=== PATIENT | female | born 1985 | race Caucasian/White ===

== ENCOUNTER 2019-04-24 07:02 | Inpatient (IN) | payer BC ==
--- NOTE | 2019-04-24 09:24 | PCM.HP ---
H&P History of Present Illness - General Date of Service: 04/24/19 Source of Information: Patient History Limitations: Reports: No Limitations - History of Present Illness Initial Comments - Free Text/Narative: This is a 34-year-old 4 para 3 EDC 04/16/19 is 41-6/7 weeks here for induction. She is group B negative, a positive, antibody negative, rubella positive, RPR nonreactive. She has some contractions yesterday stop. She has no vaginal bleeding or discharge. - Related Data Allergies/Adverse Reactions: Allergies Allergy/AdvReac Type Severity Reaction Status Date / Time No Known Allergies Allergy Verified 07/06/14 08:48 Home Medications: Home Meds Calcium Carbonate/Vitamin D3 [Calcium 500 + Vit D 400] 1 each PO DAILY 07/06/14 [History] Fish Oil/[place]-3 Fatty Acids [Fish Oil 1,000 MG] 1,540 mg PO DAILY 07/06/14 [ History] Vits #93/Iron Fum/FA [ Formula Tablet] 1 tab PO DAILY 07/06/14 [History] Social & Family History - Family History Endocrine/Metabolic: Reports: Diabetes, type II H&P Review of Systems - Review of Systems: Review Of Systems: See Below General: Reports: No Symptoms HEENT: Reports: No Symptoms Pulmonary: Reports: No Symptoms Cardiovascular: Reports: No Symptoms Gastrointestinal: Reports: No Symptoms Genitourinary: Reports: No Symptoms Musculoskeletal: Reports: No Symptoms Skin: Reports: No Symptoms Psychiatric: Reports: No Symptoms Neurological: Reports: No Symptoms Hematologic/Lymphatic: Reports: No Symptoms Immunologic: Reports: No Symptoms Exam - Exam Exam: See Below - Exam General: Alert, Oriented, Cooperative HEENT: Mucosa Moist & [place], Posterior Pharynx Clear, TMs Clear Neck: Supple, Trachea Midline Lungs: Clear to Auscultation, Normal Respiratory Effort Cardiovascular: Regular Rate, Regular Rhythm. No: Systolic Murmur GI/Abdominal Exam: Normal Bowel Sounds, Non-Tender, No Distention, No Abnormal Bruit, No Mass, Other (Gravid) (Female) Exam: Other (Cervix-3-4/90/-1) Back Exam: Normal Inspection, Full Range of Motion Extremities: No Pedal Edema Skin: Warm, Dry, Intact Neurological: Normal Speech, Normal Tone Neuro Extensive - Mental Status: Alert, Oriented x3, Normal Mood/Affect, Normal Cognition Neuro Extensive - Motor, Sensory, Reflexes: Normal Gait Psychiatric: Alert, Normal Affect, Normal Mood - Problem List (1) Failed induction of labor SNOMED Code(s): 34856934 ICD Code: O61.9 - FAILED INDUCTION OF LABOR, UNSPECIFIED Status: Acute Current Visit: Yes Problem List Initiated/Reviewed/Updated: Yes Assessment/Plan Comment:: 1. Induction-AROM clear fluid. Head is well applied with no umbilical cord palpated. 2. Group B negative so no prophylaxis needed. 3. Anticipate vaginal delivery.
[2019-04-24] MEDS ORDERED: Oxytocin 10 Units/1 ML SDV IM ONE (13:20)
[2019-04-24] MEDS ORDERED: Acetaminophen/Codeine 300-30 MG Tab PO PRN (13:32)
--- NOTE | 2019-04-24 13:40 | PCM.DEL ---
L & D Note - General Info Date of Service: 04/24/19 - Delivery Note Labor: Induced by ARM Delivery Outcome: Livebirth Infant Delivery Method: Spontaneous Vaginal Delivery-Single Presentation: Left Occiput Anterior (SHAQUILLE) Nuchal Cord: None Prep: Povidone-Iodine (Betadine Anesthesia Type: None Anesthetic: Lidocaine (Xylocaine) 0.5% Plain Local Anesthetic Volume: 2cc Episiotomy Type: None Laceration: 1st Degree Suture type: Vicryl Suture size: 4-0 Placenta: Intact, Spontaneous Resuscitation Needed: No : Suctioned - General Info Date of Service: 04/24/19 Admission Dx/Problem (Free Text): 34-year-old 4 para 3 41-6/7 weeks comes in for induction. A round clear fluid. Went on to deliver a healthy baby girl in the SHAQUILLE position. No nuchal cord. Baby was suctioned after the baby came out. Baby was placed on the mother's lap and the cord was left unclamped for over a minute then clamped and cord blood was taken. The umbilical cord retraction with fundal massage and the percent to deliver without any incident. Cervix was negative on examination and she had a very superficial first-degree laceration that was sutured with 3 simple sutures and 0.5% lidocaine. Blood loss less than 500 and complications none. - Patient Data Med Orders - Current: Current Medications Acetaminophen/Codeine Phosphate (Tylenol With Codeine No.3 300mg/30mg) 1 tab PO Q4H PRN PRN Reason: Pain (moderate 4-6) Ibuprofen (Motrin) 600 mg PO Q6H PRN PRN Reason: Pain - Problem List & Annotations (1) Vaginal delivery SNOMED Code(s): 257734289 Code(s): O80 - ENCOUNTER FOR FULL-TERM UNCOMPLICATED DELIVERY Status: Acute Current Visit: No - Problem List Review Problem List Initiated/Reviewed/Updated: Yes - My Orders Last 24 Hours: My Active Orders 04/24/19 09:19 Monitoring [RC] CONTINUOUS 04/24/19 13:32 May Shower [RC] ASDIRECTED Up ad Garrick [RC] ASDIRECTED Acetaminophen/Codeine [Tylenol with Codeine No.3 300MG/30MG] 1 tab PO Q4H PRN Ibuprofen [Motrin] 600 mg PO Q6H PRN Assess Lochia [WOMSER] Per Unit Routine Assess Uterine Involution [WOMSER] Per Unit Routine Breast Pump [WOMSER] Per Unit Routine Resuscitation Status Routine 04/24/19 13:33 Patient Status [ADT] Routine Vital Signs [RC] PFP Ice Therapy [OM.PC] Per Unit Routine Perineal Care [OM.PC] Per Unit Routine Peripheral IV Discontinue [OM.PC] Routine Sitz Bath [OM.PC] Per Unit Routine 04/24/19 Dinner Regular Diet [DIET] 04/25/19 05:11 HEMOGLOBIN/HEMATOCRIT,HH [HEME] AM 04/25/19 09:00 Vits #93/Iron Fum/FA [ Formula Tablet] 1 tab PO DAILY - Plan Plan:: 1. Admit for care. 2. Regular diet 3. Up ad garrick. 4. H/H in the a.m. 5. Normal care 6. Continue labs once a day.
--- NOTE | 2019-04-25 06:48 | PCM.PNPP ---
- General Info Date of Service: 04/25/19 Admission Dx/Problem (Free Text): The patient is without concerns. She has had to use no pain medication. Her vaginal bleeding is slowing nicely. Functional Status: Reports: Pain Controlled - Patient Data Vital Signs - Most Recent: Last Vital Signs Temp 98.2 F 04/24/19 20:00 Pulse 95 04/24/19 20:00 Resp 15 04/24/19 20:00 BP 136/84 04/24/19 20:00 Pulse Ox 96 04/24/19 20:00 Weight - Most Recent: 244 lb Med Orders - Current: Current Medications Acetaminophen/Codeine Phosphate (Tylenol With Codeine No.3 300mg/30mg) 1 tab PO Q4H PRN PRN Reason: Pain (moderate 4-6) Ibuprofen (Motrin) 600 mg PO Q6H PRN PRN Reason: Pain Multivit/Folic Acid/Iron (-U) 1 each PO DAILY GREGORY Discontinued Medications Oxytocin (Pitocin) 10 unit IM ONETIME ONE Stop: 04/24/19 13:21 Last Admin: 04/24/19 13:15 Dose: 10 unit - Infant Interaction Support Person: - Recovery Exam Fundal Tone: Firm Fundal Level: 1 Fingerbreadths Above Umbilicus Fundal Placement: Midline Lochia Amount: Small Lochia Color: Rubra/Red Perineum Description: Intact, Minimal Bruising/Swelling Episiotomy/Laceration: Approximated Bladder Status: Nonpalpable Urinary Elimination: Voided - Exam General: Alert, Oriented, Cooperative Lungs: Normal Respiratory Effort GI/Abdominal Exam: Other (Fundus is firm) Extremities: No Pedal Edema - Problem List & Annotations (1) Vaginal delivery SNOMED Code(s): 958347537 Code(s): O80 - ENCOUNTER FOR FULL-TERM UNCOMPLICATED DELIVERY Status: Acute Current Visit: No - Problem List Review Problem List Initiated/Reviewed/Updated: Yes - My Orders Last 24 Hours: My Active Orders 04/24/19 09:19 Monitoring [RC] CONTINUOUS 04/24/19 13:32 May Shower [RC] ASDIRECTED Up ad Bita [RC] ASDIRECTED Acetaminophen/Codeine [Tylenol with Codeine No.3 300MG/30MG] 1 tab PO Q4H PRN Ibuprofen [Motrin] 600 mg PO Q6H PRN Assess Lochia [WOMSER] Per Unit Routine Assess Uterine Involution [WOMSER] Per Unit Routine Breast Pump [WOMSER] Per Unit Routine Resuscitation Status Routine 04/24/19 13:33 Patient Status [ADT] Routine Vital Signs [RC] PFP Ice Therapy [OM.PC] Per Unit Routine Perineal Care [OM.PC] Per Unit Routine Peripheral IV Discontinue [OM.PC] Routine Sitz Bath [OM.PC] Per Unit Routine 04/24/19 Dinner Regular Diet [DIET] 04/25/19 05:11 HEMOGLOBIN/HEMATOCRIT,HH [HEME] AM 04/25/19 09:00 Vit/FA/Fe Fumarate [-U] 1 each PO DAILY - Plan Plan:: 1. Hemoglobin hematocrit this a.m. 2. Continue current care.
[2019-04-25] MEDS: Prenatal Multivitamin with Calcium/Folic Acid/Fe Fumarate Cap PO SCH (09:34)
[2019-04-25] MEDS: Ibuprofen 600 MG Tab PO PRN ×2 (09:35→22:35)
--- NOTE | 2019-04-26 07:23 | PCM.PNPP ---
- General Info Date of Service: 04/26/19 Admission Dx/Problem (Free Text): Mom is without complaints. Using some ibuprofen for abdominal cramping. Vaginal bleeding slowing. - Patient Data Vital Signs - Most Recent: Last Vital Signs Temp 97.7 F 04/25/19 17:00 Pulse 84 04/25/19 17:00 Resp 16 04/25/19 17:00 BP 120/71 04/25/19 17:00 Pulse Ox 99 04/25/19 17:00 Weight - Most Recent: 244 lb Med Orders - Current: Current Medications Acetaminophen/Codeine Phosphate (Tylenol With Codeine No.3 300mg/30mg) 1 tab PO Q4H PRN PRN Reason: Pain (moderate 4-6) Ibuprofen (Motrin) 600 mg PO Q6H PRN PRN Reason: Pain Last Admin: 04/25/19 09:35 Dose: 600 mg Multivit/Folic Acid/Iron (-U) 1 each PO DAILY GREGORY Last Admin: 04/25/19 09:34 Dose: 1 each Discontinued Medications Oxytocin (Pitocin) 10 unit IM ONETIME ONE Stop: 04/24/19 13:21 Last Admin: 04/24/19 13:15 Dose: 10 unit - Infant Interaction Support Person: - Recovery Exam Fundal Tone: Firm Fundal Level: At Umbilicus Fundal Placement: Midline Lochia Amount: Small Lochia Color: Rubra/Red Perineum Description: Intact, Minimal Bruising/Swelling Episiotomy/Laceration: Approximated Bladder Status: Voiding Urinary Elimination: Voided - Exam General: Alert, Oriented, Cooperative Lungs: Normal Respiratory Effort GI/Abdominal Exam: Other (Fundus firm) Extremities: No Pedal Edema - Problem List & Annotations (1) Vaginal delivery SNOMED Code(s): 643198813 Code(s): O80 - ENCOUNTER FOR FULL-TERM UNCOMPLICATED DELIVERY Status: Acute Current Visit: No - Problem List Review Problem List Initiated/Reviewed/Updated: Yes - My Orders Last 24 Hours: My Active Orders 04/25/19 09:00 Vit/FA/Fe Fumarate [-U] 1 each PO DAILY - Plan Plan:: 1. Discharged home and recheck in 6 weeks.
--- NOTE | 2019-04-26 07:26 | PCM.DCSUM1 ---
Discharge Summary - Hospital Course Free Text/Narrative:: Hospital course-patient had her baby C delivery note. day 1 hemoglobin is over 12. She had minimal cramping that ibuprofen clear. Bleeding was minimal. day 2 patient is improving with bleeding and doing well. She had no complications here at the hospital. Brief History: This is a 34-year-old 4 para 3 EDC 04/16/19 is 41-6/7 weeks here for induction. She is group B negative, a positive, antibody negative, rubella positive, RPR nonreactive. She has some contractions yesterday stop. She has no vaginal bleeding or discharge. Diagnosis: Stroke: No - Discharge Data Discharge Date: 04/26/19 Discharge Disposition: Home, Self-Care 01 Condition: Good - Discharge Diagnosis/Problem(s) (1) Vaginal delivery SNOMED Code(s): 882020319 ICD Code: O80 - ENCOUNTER FOR FULL-TERM UNCOMPLICATED DELIVERY Status: Acute Current Visit: No - Patient Instructions Diet: Regular Diet as Tolerated Activity: As Tolerated Driving: May Drive Today Showering/Bathing: May Shower Notify Provider of: Fever, Increased Pain, Drainage Other/Special Instructions: 1. Recheck with Dr. O[place]iedo in 6 weeks for check. 2. [id number] ibuprofen when necessary for discomfort. - Discharge Plan Home Medications: Home Meds Calcium Carbonate/Vitamin D3 [Calcium 500 + Vit D 400] 1 each PO DAILY 07/06/14 [History] Fish Oil/[place]-3 Fatty Acids [Fish Oil 1,000 MG] 1,540 mg PO DAILY 07/06/14 [ History] Vits #93/Iron Fum/FA [ Formula Tablet] 1 tab PO DAILY 07/06/14 [History] Patient Handouts: Depression, Baby Blues, and Self-Care, Home Care Instructions for Mom, Vaginal Delivery, Care After, Hand Washing - Discharge Summary/Plan Comment DC Time >30 min.: No - Patient Data Vitals - Most Recent: Last Vital Signs Temp 97.7 F 04/25/19 17:00 Pulse 84 04/25/19 17:00 Resp 16 04/25/19 17:00 BP 120/71 04/25/19 17:00 Pulse Ox 99 04/25/19 17:00 Weight - Most Recent: 244 lb Med Orders - Current: Current Medications Acetaminophen/Codeine Phosphate (Tylenol With Codeine No.3 300mg/30mg) 1 tab PO Q4H PRN PRN Reason: Pain (moderate 4-6) Ibuprofen (Motrin) 600 mg PO Q6H PRN PRN Reason: Pain Last Admin: 04/25/19 09:35 Dose: 600 mg Multivit/Folic Acid/Iron (-U) 1 each PO DAILY GREGORY Last Admin: 04/25/19 09:34 Dose: 1 each Discontinued Medications Oxytocin (Pitocin) 10 unit IM ONETIME ONE Stop: 04/24/19 13:21 Last Admin: 04/24/19 13:15 Dose: 10 unit
[2019-04-26 08:19] VITALS: BP 112/65
[2019-04-26] MEDS: Prenatal Multivitamin with Calcium/Folic Acid/Fe Fumarate Cap PO SCH (09:54)
[2019-04-26] MEDS: Ibuprofen 600 MG Tab PO PRN (09:55)
== END 2019-04-26 11:00 | disposition home or self-care (01) | DRG 560 ==
LOC: FB.OBCHECK 07:02 → FB.OB 07:04 → FB.OBCHECK 09:18 → FB.OB 09:19
PROVIDERS: ADMIT Family Medicine; ATTEND Family Medicine
PROC: 10E0XZZ Delivery of Products of Conception, External Approach (ICD-10-PCS; principal; 2019-04-24)
PROC: 10907ZC Drainage of Amniotic Fluid, Therapeutic from Products of Conception, Via Natural or Artificial Opening (ICD-10-PCS; 2019-04-24)
PROC: 0HQ9XZZ Repair Perineum Skin, External Approach (ICD-10-PCS; 2019-04-24)
PROC: 6A550ZT Pheresis of Cord Blood Stem Cells, Single (ICD-10-PCS; 2019-04-24)
PROC: 3E033VJ Introduction of Other Hormone into Peripheral Vein, Percutaneous Approach (ICD-10-PCS; 2019-04-24)
DX: O70.0 First degree perineal laceration during delivery (principal); Z3A.41 41 weeks gestation of pregnancy; Z37.0 Single live birth
CPT/HCPCS: 36415; 59409; 85014; 85018; 99211; A9270-GY; J2590